=== PATIENT | female | born 1985 | race Caucasian/White ===

== ENCOUNTER 2016-08-26 06:55 | Inpatient (IN) | payer OTHER ==
[~2016-08-26] VITALS: Ht 165.1 cm; Wt 110.7 kg
[2016-08-26 16:13] LABS: ABSOLUTE BASOPHIL COUNT 0 /CUMM (0.0-0.2); ABSOLUTE EOSINOPHIL COUNT 0 /CUMM (0.0-0.7); ABSOLUTE GRANULOCYTE CT 12.1 /CUMM (1.4-6.5); ABSOLUTE LYMPH COUNT 1.2 /CUMM (1.2-3.4); ABSOLUTE MONOCYTE COUNT 0.7 /CUMM (0.10-0.60); BASOPHIL % 0.1 % (0.0-2.0); EOSINOPHIL % 0 % (0-5); GRANULOCYTE % 85.9 % (42.2-75.2); MEAN CORPUSCULAR HGB CONC 32.7 G/DL (33.0-37.0); MEAN PLATELET VOLUME 8.8 FL (7.4-10.4); PLATELET COUNT 195 /CUMM (130-400); RBC DISTRIBUTION WIDTH 13.9 % (11.5-14.5)
--- NOTE | 2016-08-26 16:14 | History & Physical ---
General Information and HPI MD Statement: I have seen and personally examined MIRELA ROBERSON and documented this H&P. The patient is a 30 year old female at [36] weeks and [1] days gestation who presented with a chief complaint of [history of prior ]. Source of Information: patient Exam Limitations: no limitations History of Present Illness: 30yo, 36 1/7wks, prior for breech. she c/o she had ctxs sicne yesterday, getting stronger and closer, she came to [facility] for observation this morning, cervix was 1 cm, she received theraputic rest, in the afternoon, she c/o still has ctxs pain, cervix was 3cm/100%/-2. she had h/o genital herpes, she did not start suppression therapy yet. GBS unknown. 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 Home Who Do You Live With? spouse, child Primary Language: Luxembourgish Smoking Status: Never Smoked ETOH Use: denies use Illicit Drug Use: denies illicit drug use Living Will? unknown Review of Systems Review of Systems Constitutional: Reports: no symptoms. EENTM: Reports: no symptoms. Cardiovascular: Reports: no symptoms. Respiratory: Reports: no symptoms. GI: Reports: no symptoms. Genitourinary: Reports: see HPI. Musculoskeletal: Reports: no symptoms. Skin: Reports: no symptoms. Neurological/Psychological: Reports: no symptoms. Hematologic/Endocrine: Reports: no symptoms. Immunologic/Allergic: Reports: no symptoms. All Other Systems: Reviewed and Negative Date of LMP: 12/17/15 Post Menopausal: No Exam & Diagnostic Data Obstetric Exam Wgt Gained During : adequate Pelvimetry: adequate Dilation (cm): 3 Effacement (%): 100 Station: -2 Membranes: intact Fluid: unknown Fundal Height (cm): 36 Multiple Gestation? No Contractions: q2-4 min #1 - FHR Baseline: 130 Category: 1 Estimated Weight: 3000g Presentation: vertex Patient for Induction? No Physical Exam: VSS abdomen: gravid, soft, nontender. ext: DCT (-) SSE: no herpes lesion seen at vulvar and vagina Labs Blood Type & Rh: O positive Antibody Screen: negative Hct/Hgb & Platelets #1: 11.5/34.7%,[id number] Hct/Hgb & Platelets #2: 10.8/32.6%, [id number] Rubella: immune VDRL #1: negative VDRL #2: negative HbsAg: negative HIV #1: negative HIV #2 negative 1 Hr P Group B Strep: unknown Initial Ultrasound: IUP at 19wks Anatomy Ultrasound: normal Genetic Testing: negative Last 24 Hrs of Labs/Miguelangel: Microbiology 08/26 1546 URINE ROUT: Urine Culture - COLB Assessment/Plan Assessment/Plan: 30yo, 36 1/7wks, prior c/s, labor, h/o genital herpes, not on suppression therapy 1. admit pt, admission labs 2. d/w pt in detail about h/o genital herpes without supprsssion therapy, although there is no lesion seen at exam, but prodromal infection of HSV without lesion cannot be entirely ruled out, prodromal infection is infectious, may cause severe consequences for the baby if trial , R/B/A of vs repeat c- section d/w pt as well, after counselling, pt understand and agreed with repeat c/s 3. will prepare for OR As Ranked By This Provider Problem List: 1. 2. labor 3. History of herpes genitalis 4. History of Core Measures/Miscellaneous Venous Thromboembolism VTE Risk Factors: / VTE Contraindications: No Contraindications VTE Diagnosis: No Beta Dianne Is Beta Dianne a Home Med? No Antibiotics Is Patient on Antibiotics? No Attending MD Review Statement Attending Statement Attending MD Statement: examined this patient, discussed with family, discussed w/nursing
[2016-08-26 16:41] LABS: WHITE BLOOD CELL COUNT 14.1 /CUMM (4.8-10.8)
--- NOTE | 2016-08-26 19:28 | Operative Report ---
Operative/Inv Procedure Report Surgery Date: 08/26/16 Name of Procedure: Repeat low transverse section via Pfannenstiel Pre-Operative Diagnosis: G3 para 1011 at 36 weeks 1 day intrauterine , prior section, labor, history of HSV Post-Operative Diagnosis: Same Estimated Blood Loss: 600ML Surgeon/Insurance Administrative Assistant: ELVIN AGUILAR MD Anesthesia: spinal IV Fluids: 2 L lactated Ringer's Urine Output: 250 mL clear urine at the end of procedure Specimens: Placenta Complications: none Condition: Stable Operative Indication: G3 para 1011 at 36 weeks 1 day intrauterine , in early labor, prior section. Operative/Procedure Note Note: The patient was taken to the operating room where spinal anesthesia was found to be adequate. She was then prepared and draped in the normal sterile fashion in the dorsosupine position with a leftward tilt. A Pfannenstiel skin incision was then made with the scalpel and carried through to the underlying layer of the fascia with the Bovie. The fascia was incised in the midline and the incision extended laterally with the Bovie. The inferior aspect of this fascial incision was then grasped with the [place] clamps, elevated, and the underlying rectus muscle dissected off with Bovie. Attention was then turned to the superior aspect of this incision which, in a similar fashion, was grasped, tented up with the [place] clamps, and the rectus muscle dissected off with Bovie. The rectus muscle were then in the midline, and the peritoneum identified, tented up, and entered bluntly. The peritoneal incision was then extended superiorly and inferiorly with good visualization of the bladder. The bladder blade was then inserted and the vesicouterine peritoneum identified, grasp with the pickups and entered sharply with the Metzenbaum scissors. The incision was then extended laterally and the bladder flap created digitally. The bladder blade was then reinserted and the lower uterine segment incised in a transverse fashion with the scalpel. The uterine incision was then extended laterally. The bladder blade was removed and the infant head delivered atraumatically. The nose and mouth was suctioned with the suction bulb, and the cord clamped and cut. was handed off to the waiting pediatricians. Cord blood were sent. The placenta was then removed manually, the uterus exteriorized, and cleared of all clots and debris. The uterine incision was then repaired with 0 Vicryl in a running locked fashion. A second layer of the same suture was used to obtain excellent hemostasis. On the left side corner small bleeding encountered , a figure of 8 same 0 Vicryl suture was used to achieve hemostasis. Tammi was gently spread around the incision line, hemostasis assured. The uterus returned to the abdomen. The gutters were cleared of all clots, the peritoneum closed with 3-0 Vicryl. The fascia was reapproximated with 0 Vicryl in a running fashion. The adipose tissue was reapproximated with 20 plain suture, the skin was closed with 4-0 Monocryl subcuticularly. The patient tolerated the procedure well. Sponge, lap and needle counts were correct 2. Patient was taken to the recovery room in stable condition. Findings: Live male infant as cephalic presentation, weight 2760 g, Apgars 9 and 9, pediatrics present at delivery. Normal uterus, tubes, and ovaries.
[2016-08-27 08:39] LABS: ABSOLUTE BASOPHIL COUNT 0 /CUMM (0.0-0.2); ABSOLUTE EOSINOPHIL COUNT 0 /CUMM (0.0-0.7); ABSOLUTE GRANULOCYTE CT 14.1 /CUMM (1.4-6.5); ABSOLUTE LYMPH COUNT 1.6 /CUMM (1.2-3.4); ABSOLUTE MONOCYTE COUNT 1.2 /CUMM (0.10-0.60); BASOPHIL % 0 % (0.0-2.0); EOSINOPHIL % 0 % (0-5); HEMATOCRIT 32.7 % (37-47); MEAN CORPUSCULAR HGB 30.6 PG (27.0-31.0); MEAN CORPUSCULAR HGB CONC 33.4 G/DL (33.0-37.0); MEAN CORPUSCULAR VOLUME 91.7 FL (81.0-99.0); MEAN PLATELET VOLUME 8.8 FL (7.4-10.4); RBC DISTRIBUTION WIDTH 13.7 % (11.5-14.5); RED BLOOD CELL CT 3.56 /CUMM (4.20-5.40); WHITE BLOOD CELL COUNT 16.9 /CUMM (4.8-10.8)
[2016-08-27 09:05] LABS: GRANULOCYTE % 83.4 % (42.2-75.2); PLATELET COUNT 177 /CUMM (130-400)
--- NOTE | 2016-08-27 10:30 | PN- OBGYN ---
Surgical Brief Attending Note Brief Attending Note: NO COMPLAINTS. DOING WELL. 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 WAS OOB TO CHAIR EARLIER THIS AM. TOLERATING PAIN AND PO. BABY'S BS ARE UNSTABLE. SHE IS SUPPLEMENTING AND HOPING TO NURSE/PUMP. VSSAF FF @U-1 APPROPRIATELY TENDER INC: C/D/I. DRESSING REMOVED EXT: NO CALF TENDERNESS. +ALPS. MODERATE B/L EDEMA A/P POD 1. DOING WELL. ROUTINE POSTOP CARE. CONSULT
--- NOTE | 2016-08-27 22:12 | PN- OBGYN ---
Surgical Brief Attending Note Brief Attending Note: Notified by RN that is being transferred to [facility] due to hypoglycemia, temperature instability, and mild respiratory distress. Initially pt desired to just be discharged first thing in am but now desires transfer with baby if possible. My patient is a 30 year old who presented in active labor at 36+1 weeks (yesterday). She had a h/o prior delivery. She may have had prodromal HSV symptoms. She is now POD1 and doing well and is without complaints. was remarkable for prior LTCS for breech, BMI 36.4, h/o leak in greater saphenous vein and has a vascular surgeon that she folls with, h /o genital HSV but did not have opportunity to start valtrex. She is now ambulating, voiding, tolerating pain and po. Vital signs have been stable. Incision is clean and dry. Abdomen is soft and appropriately tender. Ext are without calf tenderness, moderate b/l pedal edema is noted. Case reviewed with Dr. Carolee Villalta at [facility] and she was willing to accept transfer of care.
== END 2016-08-27 23:15 | disposition short-term general hospital (02) | DRG 766 ==
LOC: CBCO 06:55 → GNO 11:00
PROVIDERS: ADMIT Obstetrics & Gynecology
PROC: 10D00Z1 Extraction of Products of Conception, Low, Open Approach (ICD-10-PCS; principal; 2016-08-26)
DX: O60.14X0 Preterm labor third trimester with preterm delivery third trimester, not applicable or unspecified (principal); N85.8 Other specified noninflammatory disorders of uterus; O34.211 Maternal care for low transverse scar from previous cesarean delivery; Z86.19 Personal history of other infectious and parasitic diseases; Z3A.36 36 weeks gestation of pregnancy; Z37.0 Single live birth
CPT/HCPCS: GNOS; 87086; J0690; J1650; J1885; J2210; J7120